=== PATIENT | female | born 1985 | race Caucasian/White ===

== ENCOUNTER → 2017-11-06 | Outpatient (CLI) | payer BC ==
[~2017-11-06] VITALS: Ht 162.6 cm; Wt 84.0 kg
[~2017-11-06] MED LIST: CLEOCIN300 MG PO; ENDOCET 5-3251 EACH PO; FLINTSTONES M100 MCG PO; FLUOXETINE HCL20 MG PO; IBUPROFEN800 MG PO; Motrin PO; NORTRIPTYLINE H10 MG PO; PERCOCET 5/31 TABLET PO; PREDNISONE20 MG PO; PRENATAL TABLE1 EAC3 PO; PRENATAL VITAM1 EAC3 PO; Percocet 5/325,Endoc PO; ZOLOFT50 MG PO; Zofran PO
[2017-11-06 17:25] VITALS: BP 120/76
== END | disposition home or self-care (01) ==
LOC: IVINF 16:58
DX: Z34.83 Encounter for supervision of other normal pregnancy, third trimester (principal); Z31.82 Encounter for Rh incompatibility status; Z3A.28 28 weeks gestation of pregnancy; Z67.11 Type A blood, Rh negative
CPT/HCPCS: 96372